=== PATIENT | male | born 1945 | race Caucasian/White ===

== ENCOUNTER 2021-05-11 22:07 | Emergency (ER) | payer MEDICARE, OTHER ==
[~2021-05-11] VITALS: Ht 182.9 cm; Wt 95.5 kg
[2021-05-11 22:23] VITALS: TEMP 98.4
[2021-05-11] MEDS ORDERED: ASPIRIN 81M81 MG/TA2 PO (22:42)
[2021-05-11] MEDS ORDERED: LIPITOR 40MG TA40 MG PO (22:42)
[2021-05-11] MEDS ORDERED: PRINIVIL20 MG PO (22:42)
[2021-05-11] MEDS ORDERED: FISH OIL 1000MG1 CAP PO (22:43)
[2021-05-11] MEDS ORDERED: CASODEX 50MG TA50 MG PO (22:44)
[2021-05-12 01:02] VITALS: BP 142/88; PULSE 70
== END 2021-05-12 01:02 | disposition home or self-care (01) ==
LOC: COL.ER 22:07
DX: S09.90XA Unspecified injury of head, initial encounter (principal); S01.01XA Laceration without foreign body of scalp, initial encounter; I10 Essential (primary) hypertension; E78.5 Hyperlipidemia, unspecified; Z79.899 Other long term (current) drug therapy; W01.198A Fall on same level from slipping, tripping and stumbling with subsequent striking against other object, initial encounter; Y92.34 Swimming pool (public) as the place of occurrence of the external cause